=== PATIENT | female | born 1960 | race Caucasian/White ===

== ENCOUNTER 2017-08-03 08:58 | Emergency (ER) | payer MEDICARE ==
[~2017-08-03] VITALS: Ht 160 cm; Wt 49.1 kg
[2017-08-03 09:01] VITALS: BP 127/86; PULSE 64; RESP 14; O2SAT 97
--- NOTE | 2017-08-03 09:28 | ED.REPORT ---
HPI-General Illness Date of Service Aug 03, 2017 ED Provider: Fitz Jackson DO Wong is a 57-year-old female with a history of syncopal episodes and seizures since to the ED with complaints of insomnia. Patient notes that insomnia has been worse within the last couple months. Since being off clonazepam and noticed that she has increased restless legs and that has caused her inability to sleep. She has tried melatonin, Advil PM, and Benadryl, increasing her exercise, decreasing her coffee intake, and hot baths; none of which has helped with her sleep. She is worried because due to the lack of sleep and increase in stress, she tends to have increased syncopal episodes. She has been worked up thoroughly in [place]. They determined that her syncopal episodes were not seizure related. Last EEG was done in 2005. She has an appointment with an epileptic specialist in [facility] this September. She has an appointment with primary care provider to establish care in this coming month. Nursing Notes Stated Complaint: GENERAL Chief Complaint: General Complaint Allergies: Coded Allergies: No Known Allergies (Unverified , 08/03/17) Scheduled PRN Temazepam (Temazepam) 7.5 Mg Capsule 7.5 MG PO HS PRN PRN For Insomnia General Time Seen by MD: 09:30 Chief Complaint Other (insomnia) Hx Obtained From: Patient Sudden in Onset?: No Onset Occurred: More than a week ago... (>6 months) Symptom Duration: Constant Past Medical History Past Medical History Syncopal episodes Seizures Past Surgical History Reports: Smoking History Current Every Day Smoker Social History Alcohol Use: "Social" Drug Use: Denies drug use Ambulatory Status Independent Review of Systems Full Review of Systems Constitutional: Denies: Chills, Fever Respiratory: Denies: Shortness of breath Cardiovascular: Denies: Chest pain GI: Denies: Abdominal pain Neurologic: Reports: Lightheaded, Syncope, Denies: Weakness Psychiatric: Reports: Insomnia, Stress Complete sys rev & neg: except as marked. Physical Exam Vital Signs Vital Signs Date Time Temp Pulse Resp B/P Pulse Ox O2 Delivery O2 Flow Rate FiO2 08/03/17 12:17 36.7 54 16 106/69 97 Room Air 08/03/17 09:01 36.5 64 14 127/86 97 Room Air General/Constitutional: Well-developed, Well-nourished Head / Eyes: Atraumatic, Normocephalic, PERRL ENT: Mucous membranes moist, Conjunctiva normal, No scleral icterus Neck: Supple, Non-tender, Full range of motion Respiratory: Breath sounds normal, Clear to auscultation, No respiratory distress Cardiovascular: Regular rate & rhythm, Heart sounds normal, Intact distal pulses Abdomen / GI: Soft, Non-tender, No guarding, No rebound, No distention Back: No CVA tenderness Lymphatic: No lymphadenopathy Extremities: Vascular intact, Neuro intact, No swelling, No tenderness Skin: Warm, Dry, No cyanosis Neurologic: Alert, Oriented, Nonfocal Psychiatric: Mood/affect normal, Behavior normal, Normal thought content Interpretation & Diagnostics Lab Results Interpretation Result Diagram: 08/03/17 1008 08/03/17 1008 Test 08/03/17 10:08 White Blood Count 4.4th/mm3 (3.8-10.1) Red Blood Count 4.01mil/mm3 (3.90-5.20) Hemoglobin 12.8g/dL (12.0-15.6) Hematocrit 38.5% (35.0-46.0) Mean Corpuscular Volume 96.0fL (81-100) Mean Corpuscular Hemoglobin 31.9pg (27.0-35.0) Mean Corpuscular Hemoglobin Concent 33.2% (32.0-37.0) Red Cell Distribution Width 12.5% (12.3-15.4) Platelet Count 239bil/L (150-400) Neutrophils (%) (Auto) 69.4% (40-74) Lymphocytes (%) (Auto) 22.9% (14-46) Monocytes (%) (Auto) 6.4% (4-12) Eosinophils (%) (Auto) 1.1% (0-5) Basophils (%) (Auto) 0.2% (0-3) Sodium Level 140mEq/L (134-144) Potassium Level 4.4mEq/L (3.5-5.2) Chloride Level 104mEq/L (97-108) Carbon Dioxide Level 25mmol/L (18-29) Blood Urea Nitrogen 17mg/dL (6-24) Creatinine 0.65mg/dL (0.57-1.00) Estimat Glomerular Filtration Rate 134mL/min (>59) Glucose Level 96mg/dL (60-99) Calcium Level 8.8mg/dL (8.5-10.1) Total Bilirubin 0.2mg/dL (0.0-1.2) Aspartate Amino Transf (AST/SGOT) 19U/L (0-50) Alanine Aminotransferase (ALT/SGPT) 13U/L (0-32) Alkaline Phosphatase 67U/L (25-150) Total Protein 6.4g/dL (6.4-8.4) Albumin 4.1g/dL (3.4-5.0) Hold Flores Top Tube Received (Received) ECG Interpretation ECG Interpretation: Sinus rhythm at a rate of 51 bpm. Signs of ischemia. Normal EKG. Time: 11:39 Interpreted by: ED physician Re-Eval/Medical Decision Med Decision/Clinical Course Leticia is a 57-year-old female with complaints of insomnia. Unrelated to her chief complaints she says she has episodes of syncope which will be further worked up by a specialist in [facility]. To ensure that her syncopal episodes are not due to an arrhythmia or electrolyte imbalances we ordered an EKG and labs. Discharge & Departure Primary Impression: Insomnia Insomnia type: unspecified Qualified Code: G47.00 - Insomnia, unspecified Disposition: Home Discharge Condition All VS Reviewed: Yes Condition: Stable Patient Instructions: Insomnia (ED) Additional Instructions: Today we did lab work and an EKG to make sure your syncopal episodes were not due to an arrhythmia or electrolyte imbalances. We are giving you a three-day supply of temazepam. Take 1 at night for sleep. You can also try Unisom [id number] for insomnia. Follow up with your primary care provider, Dr. Rojelio Mcneil for insomnia management. Follow up with the specialist in [facility] for further workup of your epilepsy. I hope you feel better Referrals: NOPCP (PCP) Attending Statement The patient was seen and examined together with Dr. Elizondo on 08/03/17 and I have added additional information to the note above. Lesia Elizondo DO Aug 03, 2017 09:28 Fitz Jackson DO Aug 03, 2017 12:57
[2017-08-03 10:28] LABS: BASOPHILS % (AUTO) 0.2 % (0-3); EOSINOPHILS % (AUTO) 1.1 % (0-5); MONOCYTES % (AUTO) 6.4 % (4-12); Mean Corpuscular Hemoglobin 31.9 pg (27.0-35.0); NEUTROPHILS % (AUTO) 69.4 % (40-74); Platelet Count 239 bil/L (150-400)
[2017-08-03] MEDS ORDERED: TEMA7.5C14 PO (11:22)
[2017-08-03 12:17] VITALS: BP 106/69; PULSE 54; RESP 16; O2SAT 97
== END 2017-08-03 12:13 | disposition home or self-care (01) ==
LOC: SED 08:58
DX: G47.00 Insomnia, unspecified (principal); F17.200 Nicotine dependence, unspecified, uncomplicated